=== PATIENT | female | born 1980 | race Caucasian/White ===

== ENCOUNTER → 2021-12-03 | Outpatient (CLI) | payer OTHER | END | disposition home or self-care (01) | LOC: RAD 14:44 | PROVIDERS: ATTEND Family Medicine | DX: J18.9 Pneumonia, unspecified organism (principal) ==

== ENCOUNTER → 2021-12-24 | Outpatient (CLI) | payer OTHER ==
[2021-12-25 08:08] LABS: FOLLICLE STIMULATING HORMONE 5.8 mIU/mL (.); LUTEINIZING HORMONE 5.6 mIU/mL (.); PROLACTIN 6.2 ng/mL (4.8-23.3)
== END | disposition home or self-care (01) ==
LOC: MAMMO 12-23 11:30 → LAB 15:42 → MAMMO 16:30
PROVIDERS: ATTEND Family Medicine
DX: Z12.31 Encounter for screening mammogram for malignant neoplasm of breast (principal); N92.6 Irregular menstruation, unspecified

== ENCOUNTER 2023-02-23 08:09 | Emergency (ER) | payer OTHER ==
[~2023-02-23] VITALS: Ht 165.1 cm; Wt 85.7 kg
[2023-02-23 08:49] LABS: BILIRUBIN Negative (Negative); BLOOD Negative (Negative); CLARITY Turbid (Clear); COLOR Yellow (Yellow); GLUCOSE Negative (Negative); KETONE Trace (Negative); LEUKO ESTERASE 2+ (Negative); NITRITE Negative (Negative); SPECIFIC GRAVITY 1.025 (1.001-1.030)
[2023-02-23 09:01] LABS: CALCIUM OXALATE CRYSTALS 3+
[2023-02-23 09:02] LABS: EPITHELIAL CELLS 31-40; WBC 21-30 wbc/hpf (0-5)
[2023-02-23 09:03] LABS: BACTERIA 1+
[2023-02-23] MEDS ORDERED: CIPRO500 MG PO (12:03)
== END 2023-02-23 12:02 | disposition home or self-care (01) ==
LOC: ED 08:09
PROVIDERS: Emergency Medicine
DX: R10.2 Pelvic and perineal pain (principal); N39.0 Urinary tract infection, site not specified; Z88.1 Allergy status to other antibiotic agents